=== PATIENT | female | born 1970 | race Caucasian/White ===

== ENCOUNTER → 2016-12-13 | Outpatient (CLI) | payer OTHER ==
[~2016-12-13] MED LIST: BACTRIM DS1 TAB PO; CLINDAMYCIN HC300 MG PO; COZAAR25 MG PO; FEOSOL325 MG PO; GLUCOPHAGE1000 MG PO; K-TAB 10MEQ10 MEQ PO; LASIX40 MG PO; ZOCOR10 MG PO; ZYRTEC10 MG PO
== END | disposition disaster alternative care site (69) ==
LOC: GRAD 10:36
DX: M25.862 Other specified joint disorders, left knee (principal)
CPT/HCPCS: A9577